=== PATIENT | female | born 1950 | race Caucasian/White ===

== ENCOUNTER 2020-10-22 13:05 | Inpatient (IN) | payer MEDICARE, OTHER ==
[~2020-10-22] VITALS: Ht 167.6 cm; Wt 96.0 kg
[2020-10-22 14:20] LABS: Basophils # (auto) 0 10 ^3/uL (0-0.2); Basophils % (auto) 0.4 % (0.0-2.0); Eosinophils # (auto) 0.5 10 ^3/uL (0-0.8); Eosinophils % (auto) 4.7 % (0.0-7.0); Hematocrit 33.6 % (36.0-46.0); Hemoglobin 10.9 g/dL (12.2-16.2); Lymphocytes # (auto) 2.3 10 ^3/uL (0.4-5.4); Lymphocytes % (auto) 23.4 % (10.0-50.0); Mean Corpuscular Hemoglobin 27.5 pg (28.0-32.0); Mean Corpuscular Hgb Conc. 32.4 g/dL (32.0-36.0); Mean Corpuscular Volume 84.8 fL (80.0-100.0); Monocytes # (auto) 0.6 10 ^3/uL (0-1.3); Monocytes % (auto) 6.2 % (0.0-12.0); Neutrophils # (auto) 6.5 10 ^3/uL (1.6-8.6); Neutrophils % (auto) 65.3 % (37.0-80.0); Platelet Count (auto) 245 10^3/uL (140-450); Red Blood Cells 3.97 10^6/uL (4.0-5.20); Red Cell Distribution Width 14.8 % (11.8-14.3)
[2020-10-22 14:28] LABS: Albumin 2.8 g/dL (3.4-5.0); Calcium 8.9 mg/dL (8.5-10.1); Potassium 4.8 mmol/L (3.5-5.1)
[2020-10-22 14:32] LABS: BUN/Creatinine Ratio 9.2; Bilirubin, Total 0.4 mg/dL (0.2-1.0); Total Protein 6.9 g/dL (6.4-8.2)
[2020-10-22 14:34] LABS: Urine Bacteria NONE SEEN /hpf (None Seen); Urine Blood TRACE /uL (Negative); Urine Specific Gravity 1.009 (1.001-1.035); Urine WBC 15 /hpf (0 - 5)
[2020-10-22] MEDS ORDERED: NITROGLYCERIN 0.4 MG SL TAB SL PRN (15:30)
[2020-10-22] MEDS ORDERED: PANTOPRAZOLE 40 MG/10 ML VIAL INJ IV ONE (15:30)
[2020-10-22] MEDS ORDERED: MORPHINE SULF INJ 2 MG/ML SYRINGE 1ML IV PRN (15:30)
[2020-10-22] MEDS ORDERED: DEXTROSE (50%) 50ML SYRG IV PRN (15:30)
[2020-10-22] MEDS ORDERED: SODIUM CHLORIDE 0.9% 500 ML IV ONE (15:30)
[2020-10-22] MEDS: SODIUM CHLORIDE 0.9% 1,000 ML IV SCH (16:57)
[2020-10-22] MEDS: InsuLIN REG 1unit/0.01ml Soln (100units/ml) SC SCH ×2 (17:27→21:27)
[2020-10-22] MEDS: ACCU-CHEK COMFORT CURVE STRIP VI SCH ×2 (17:27→21:27)
[2020-10-22] MEDS: SUCRALFATE 1 GM/10 ML ORAL SUSP PO SCH ×2 (17:32→21:26)
[2020-10-22] MEDS ORDERED: amLODIPine BESYLATE 5 MG TAB PO ONE (18:30)
[2020-10-22] MEDS ORDERED: LABETALOL HCL 5 MG/ML 4ML SYRINGE IV PRN (18:30)
[2020-10-22] MEDS: PANTOPRAZOLE 40 MG TAB PO SCH (21:27)
[2020-10-22 22:00] VITALS: BP 165/82
[2020-10-22 22:11] VITALS: BP 135/77
[2020-10-22 23:35] LABS: Creatinine, Urine 76 mg/dL (30.0-125.0); Sodium Urine 68 mmol/L (40-220)
[2020-10-23] MEDS: SODIUM CHLORIDE 0.9% 1,000 ML IV SCH ×2 (01:14→11:25)
[2020-10-23 05:00] VITALS: BP 146/70
[2020-10-23 06:07] LABS: Basophils # (auto) 0 10 ^3/uL (0-0.2); Basophils % (auto) 0.5 % (0.0-2.0); Eosinophils # (auto) 0.6 10 ^3/uL (0-0.8); Eosinophils % (auto) 6.7 % (0.0-7.0); Hematocrit 30.6 % (36.0-46.0); Hemoglobin 10.3 g/dL (12.2-16.2); Lymphocytes # (auto) 2.5 10 ^3/uL (0.4-5.4); Lymphocytes % (auto) 29.9 % (10.0-50.0); Mean Corpuscular Hemoglobin 28.4 pg (28.0-32.0); Mean Corpuscular Hgb Conc. 33.6 g/dL (32.0-36.0); Mean Corpuscular Volume 84.5 fL (80.0-100.0); Monocytes # (auto) 0.5 10 ^3/uL (0-1.3); Monocytes % (auto) 6.4 % (0.0-12.0); Neutrophils # (auto) 4.8 10 ^3/uL (1.6-8.6); Neutrophils % (auto) 56.5 % (37.0-80.0); Platelet Count (auto) 216 10^3/uL (140-450); Red Blood Cells 3.63 10^6/uL (4.0-5.20); Red Cell Distribution Width 14.9 % (11.8-14.3); White Blood Cell 8.4 10^3/uL (4.4-10.8)
[2020-10-23] MEDS: InsuLIN REG 1unit/0.01ml Soln (100units/ml) SC SCH ×4 (06:08→22:30)
[2020-10-23] MEDS: ACCU-CHEK COMFORT CURVE STRIP VI SCH ×4 (06:08→22:00)
[2020-10-23] MEDS: SUCRALFATE 1 GM/10 ML ORAL SUSP PO SCH ×4 (06:08→22:26)
[2020-10-23 06:28] LABS: Potassium 4.9 mmol/L (3.5-5.1)
[2020-10-23 06:38] LABS: Albumin 2.7 g/dL (3.4-5.0); BUN/Creatinine Ratio 10.3; Bilirubin, Total 0.4 mg/dL (0.2-1.0); Calcium 8.7 mg/dL (8.5-10.1); Magnesium 2.2 mg/dL (1.6-2.6); Total Protein 6.5 g/dL (6.4-8.2)
[2020-10-23 08:40] VITALS: BP 143/60
[2020-10-23] MEDS ORDERED: PANTOPRAZOLE 40 MG/10 ML VIAL INJ IV SCH (10:00)
[2020-10-23] MEDS ORDERED: SODIUM BICARBONATE 8.4 % INJ 50ML VIAL IV ONE (10:45)
[2020-10-23] MEDS: PANTOPRAZOLE 40 MG TAB PO SCH ×2 (12:06→22:27)
[2020-10-23] MEDS: amLODIPine BESYLATE 5 MG TAB PO SCH (12:06)
[2020-10-23] MEDS: CLOPIDOGREL BISULFATE 75 MG TAB PO SCH (12:06)
[2020-10-23 12:50] VITALS: BP 159/69
[2020-10-23] MEDS ORDERED: ERGOCALCIFEROL 50,000 UNIT(1.25MG) CAP PO SCH (16:15)
[2020-10-23 16:46] VITALS: BP 146/69
[2020-10-23] MEDS ORDERED: METF-372 PO (17:01)
[2020-10-23] MEDS ORDERED: ATOR40TA52 PO (17:01)
[2020-10-23] MEDS ORDERED: ASPI-543 PO (17:01)
[2020-10-23] MEDS ORDERED: CLOP75TA70 PO (17:01)
[2020-10-23] MEDS ORDERED: GLIP10TA9 PO (17:01)
[2020-10-23] MEDS ORDERED: LOSA-69 PO (17:01)
[2020-10-23 22:00] VITALS: BP 138/68
[2020-10-24] MEDS: SODIUM CHLORIDE 0.9% 1,000 ML IV SCH ×3 (01:39→18:00)
[2020-10-24 05:00] VITALS: BP 128/54
[2020-10-24 06:08] LABS: Basophils # (auto) 0 10 ^3/uL (0-0.2); Basophils % (auto) 0.4 % (0.0-2.0); Eosinophils # (auto) 0.6 10 ^3/uL (0-0.8); Eosinophils % (auto) 7.2 % (0.0-7.0); Hematocrit 30.9 % (36.0-46.0); Hemoglobin 10.4 g/dL (12.2-16.2); Lymphocytes # (auto) 2.3 10 ^3/uL (0.4-5.4); Lymphocytes % (auto) 27.3 % (10.0-50.0); Mean Corpuscular Hemoglobin 28.5 pg (28.0-32.0); Mean Corpuscular Hgb Conc. 33.7 g/dL (32.0-36.0); Mean Corpuscular Volume 84.6 fL (80.0-100.0); Monocytes # (auto) 0.5 10 ^3/uL (0-1.3); Monocytes % (auto) 6.4 % (0.0-12.0); Neutrophils % (auto) 58.7 % (37.0-80.0); Platelet Count (auto) 247 10^3/uL (140-450); Red Blood Cells 3.65 10^6/uL (4.0-5.20); Red Cell Distribution Width 14.9 % (11.8-14.3); White Blood Cell 8.5 10^3/uL (4.4-10.8)
[2020-10-24] MEDS: ACCU-CHEK COMFORT CURVE STRIP VI SCH ×4 (06:11→21:36)
[2020-10-24] MEDS: InsuLIN REG 1unit/0.01ml Soln (100units/ml) SC SCH ×4 (06:11→21:31)
[2020-10-24] MEDS: SUCRALFATE 1 GM/10 ML ORAL SUSP PO SCH ×4 (06:13→21:35)
[2020-10-24 06:21] LABS: Albumin 2.7 g/dL (3.4-5.0); Magnesium 1.8 mg/dL (1.6-2.6); Potassium 4.4 mmol/L (3.5-5.1)
[2020-10-24 06:25] LABS: BUN/Creatinine Ratio 10.8; Bilirubin, Total 0.5 mg/dL (0.2-1.0); Calcium 8.6 mg/dL (8.5-10.1); Total Protein 6.6 g/dL (6.4-8.2)
[2020-10-24 09:00] VITALS: BP 136/66
[2020-10-24] MEDS: PANTOPRAZOLE 40 MG TAB PO SCH ×2 (09:38→21:36)
[2020-10-24] MEDS: CLOPIDOGREL BISULFATE 75 MG TAB PO SCH (09:38)
[2020-10-24] MEDS: amLODIPine BESYLATE 5 MG TAB PO SCH (09:39)
[2020-10-24 10:47] LABS: Urine Bacteria NONE SEEN /hpf (None Seen); Urine Blood Negative /uL (Negative); Urine WBC 1 /hpf (0 - 5)
[2020-10-24 10:54] LABS: Protein, Urine 41.4 mg/dL (0.0-11.9)
[2020-10-24] MEDS ORDERED: MAGNESIUM SULFATE 1GM/100ML 100 ML IV ONE (12:45)
[2020-10-24 13:00] VITALS: BP 142/62
[2020-10-24 17:00] VITALS: BP 128/68
[2020-10-24 22:00] VITALS: BP 141/62
[2020-10-25] MEDS: SODIUM CHLORIDE 0.9% 1,000 ML IV SCH ×3 (03:39→15:47)
[2020-10-25 05:00] VITALS: BP 138/67
[2020-10-25] MEDS: ACCU-CHEK COMFORT CURVE STRIP VI SCH ×4 (06:27→21:58)
[2020-10-25] MEDS: SUCRALFATE 1 GM/10 ML ORAL SUSP PO SCH ×4 (06:28→21:58)
[2020-10-25] MEDS: InsuLIN REG 1unit/0.01ml Soln (100units/ml) SC SCH ×4 (06:31→23:11)
[2020-10-25 08:06] LABS: Potassium 4.3 mmol/L (3.5-5.1)
[2020-10-25 08:20] LABS: Albumin 2.8 g/dL (3.4-5.0); BUN/Creatinine Ratio 9.7; Bilirubin, Direct 0.2 mg/dL (0-0.2); Bilirubin, Total 0.7 mg/dL (0.2-1.0); Calcium 8.7 mg/dL (8.5-10.1); Magnesium 1.8 mg/dL (1.6-2.6); Total Protein 6.7 g/dL (6.4-8.2)
[2020-10-25 08:29] VITALS: BP 138/89
[2020-10-25] MEDS: PANTOPRAZOLE 40 MG TAB PO SCH ×2 (10:01→21:58)
[2020-10-25] MEDS: CLOPIDOGREL BISULFATE 75 MG TAB PO SCH (10:02)
[2020-10-25] MEDS: amLODIPine BESYLATE 5 MG TAB PO SCH (10:04)
[2020-10-25] MEDS: Glucerna Carbsteady SHAKE Vanilla 8oz PO SCH ×2 (12:16→18:13)
[2020-10-25 12:30] VITALS: BP 144/71
[2020-10-25 17:06] VITALS: BP 139/62
[2020-10-25 22:00] VITALS: BP 132/60
[2020-10-26 05:00] VITALS: BP 136/58
[2020-10-26] MEDS: ACCU-CHEK COMFORT CURVE STRIP VI SCH ×2 (07:19→11:37)
[2020-10-26] MEDS: InsuLIN REG 1unit/0.01ml Soln (100units/ml) SC SCH ×2 (07:20→11:41)
[2020-10-26] MEDS: SUCRALFATE 1 GM/10 ML ORAL SUSP PO SCH ×2 (07:23→11:42)
[2020-10-26 07:50] LABS: Basophils # (auto) 0 10 ^3/uL (0-0.2); Basophils % (auto) 0.5 % (0.0-2.0); Eosinophils # (auto) 0.6 10 ^3/uL (0-0.8); Eosinophils % (auto) 7.8 % (0.0-7.0); Hematocrit 32.9 % (36.0-46.0); Hemoglobin 10.6 g/dL (12.2-16.2); Lymphocytes # (auto) 2.9 10 ^3/uL (0.4-5.4); Lymphocytes % (auto) 37.8 % (10.0-50.0); Mean Corpuscular Hemoglobin 27.5 pg (28.0-32.0); Mean Corpuscular Hgb Conc. 32.3 g/dL (32.0-36.0); Mean Corpuscular Volume 85.3 fL (80.0-100.0); Monocytes # (auto) 0.5 10 ^3/uL (0-1.3); Monocytes % (auto) 6.3 % (0.0-12.0); Neutrophils # (auto) 3.6 10 ^3/uL (1.6-8.6); Neutrophils % (auto) 47.6 % (37.0-80.0); Platelet Count (auto) 274 10^3/uL (140-450); Red Blood Cells 3.85 10^6/uL (4.0-5.20); Red Cell Distribution Width 14.2 % (11.8-14.3); White Blood Cell 7.6 10^3/uL (4.4-10.8)
[2020-10-26 08:13] LABS: Potassium 4.4 mmol/L (3.5-5.1)
[2020-10-26 08:14] VITALS: BP 145/72
[2020-10-26] MEDS: Glucerna Carbsteady SHAKE Vanilla 8oz PO SCH ×2 (08:14→12:00)
[2020-10-26 08:19] LABS: Albumin 2.8 g/dL (3.4-5.0); BUN/Creatinine Ratio 10.5; Bilirubin, Total 0.4 mg/dL (0.2-1.0); Calcium 8.4 mg/dL (8.5-10.1); Total Protein 6.6 g/dL (6.4-8.2)
[2020-10-26] MEDS: amLODIPine BESYLATE 5 MG TAB PO SCH (09:41)
[2020-10-26] MEDS: CLOPIDOGREL BISULFATE 75 MG TAB PO SCH (09:41)
[2020-10-26] MEDS: PANTOPRAZOLE 40 MG TAB PO SCH (09:41)
[2020-10-26] MEDS: SODIUM CHLORIDE 0.9% 1,000 ML IV SCH (11:42)
[2020-10-26 12:30] VITALS: BP 149/84
[2020-10-26 14:38] VITALS: BP 149/84
== END 2020-10-26 15:11 | disposition home or self-care (01) | DRG 438 ==
LOC: ER 13:05 → TELE 13:06 → TELE-WESTW 20:34
PROVIDERS: ADMIT Nurse Practitioner Acute Care; ATTEND Internal Medicine
DX: K85.90 Acute pancreatitis without necrosis or infection, unspecified (principal); N17.0 Acute kidney failure with tubular necrosis; R65.11 Systemic inflammatory response syndrome (SIRS) of non-infectious origin with acute organ dysfunction; E44.0 Moderate protein-calorie malnutrition; K57.92 Diverticulitis of intestine, part unspecified, without perforation or abscess without bleeding; Z20.822 Contact with and (suspected) exposure to COVID-19; I25.10 Atherosclerotic heart disease of native coronary artery without angina pectoris; E11.9 Type 2 diabetes mellitus without complications; I10 Essential (primary) hypertension; E66.9 Obesity, unspecified; D64.9 Anemia, unspecified; E78.5 Hyperlipidemia, unspecified; E55.9 Vitamin D deficiency, unspecified; E21.3 Hyperparathyroidism, unspecified; Z88.0 Allergy status to penicillin; Z68.32 Body mass index [BMI] 32.0-32.9, adult; Z79.84 Long term (current) use of oral hypoglycemic drugs; Z90.49 Acquired absence of other specified parts of digestive tract; Z90.710 Acquired absence of both cervix and uterus; Z95.5 Presence of coronary angioplasty implant and graft
CPT/HCPCS: 36415; 71045; 74176; 74181; 76775; 80053; 80061; 80076; 81001; 82150; 82306; 82570; 82962; 83036; 83690; 83735; 83970; 84100; 84156; 84300; 84443; 85025; 87426; 93005; 96361; 96374; 97163; C9113; G0378; J1815; J3490